=== PATIENT | male | born 1970 | race Caucasian/White ===

== ENCOUNTER 2018-07-03 08:00 | Outpatient (CLI) | payer BC ==
[~2018-07-03] VITALS: Ht 170.2 cm; Wt 99.1 kg
[2018-07-03] MEDS ORDERED: THIA100T67 PO (15:49)
[2018-07-03] MEDS ORDERED: QUET200T PO (15:49)
[2018-07-03] MEDS ORDERED: OXYC5CAP2 PO (15:49)
[2018-07-03] MEDS ORDERED: DIGO125T PO (15:49)
[2018-07-03] MEDS ORDERED: POTA20TA89 PO (15:49)
[2018-07-03] MEDS ORDERED: SPIR25TA5 PO (15:49)
[2018-07-03] MEDS ORDERED: ATOR10TA9 PO (15:49)
[2018-07-03] MEDS ORDERED: FURO20TA3 PO (15:49)
[2018-07-03] MEDS ORDERED: MAGN400T7 PO (15:49)
[2018-07-03] MEDS ORDERED: CYAN10005 PO (15:49)
[2018-07-03] MEDS ORDERED: ALBU90AE INH (15:49)
[2018-07-03] MEDS ORDERED: FOLI-17 PO (15:49)
[2018-07-03] MEDS ORDERED: AMOX-291 PO (15:50)
== END 2018-07-03 23:59 | disposition home or self-care (01) ==
LOC: STAR 08:00 → EDSTATUS 07-06 12:00
PROVIDERS: ATTEND Orthopaedic Surgery
DX: M75.122 Complete rotator cuff tear or rupture of left shoulder, not specified as traumatic (principal); M75.42 Impingement syndrome of left shoulder
CPT/HCPCS: 93005

== ENCOUNTER → 2019-03-01 | Outpatient (CLI) | payer BC ==
[~2019-03-01] MED LIST: ALBU90AE INH; AMOX-291 PO; ATOR10TA9 PO; ATOR40TA78 PO; CYAN-27 PO; DIGO125T PO; FOLI-17 PO; FURO20TA3 PO; LISI-170 PO; MAGN400T9 PO; METO-95 PO; OMEP-110 PO; OXYC5CAP2 PO; POTA20TA89 PO; QUET200T PO; SPIR25TA5 PO; THIA100T67 PO
[2019-03-01 15:40] LABS: ALANINE AMINOTRANSFERASE 70 U/L (12-78); ALBUMIN 3.3 g/dL (3.4-5.0); ANION GAP 9 mmol/L (5-15); CALCIUM 8.7 mg/dL (8.5-10.1); CHLORIDE 107 mmol/L (98-107); CREATININE 1.01 mg/dL (0.7-1.3)
[2019-03-01 15:42] LABS: ALKALINE PHOSPHATASE 145 U/L (45-117); BILIRUBIN,TOTAL 0.4 mg/dL (0.2-1.0); TOTAL PROTEIN 8.1 g/dL (6.4-8.2)
== END | disposition home or self-care (01) ==
LOC: STAR 14:55
PROVIDERS: ATTEND Orthopaedic Surgery
DX: Z01.818 Encounter for other preprocedural examination (principal); M75.122 Complete rotator cuff tear or rupture of left shoulder, not specified as traumatic; M75.22 Bicipital tendinitis, left shoulder; I45.81 Long QT syndrome; Z79.01 Long term (current) use of anticoagulants; Z79.899 Other long term (current) drug therapy
CPT/HCPCS: 36415; 80053; 93005

== ENCOUNTER 2019-03-08 08:22 | Day surgery (SDC) | payer BC ==
[~2019-03-08] VITALS: Ht 170.2 cm; Wt 98.0 kg
[~2019-03-08 08:22] MED LIST changes: +BUPIVACAINE/PF 0.5% ONE; +LIDOCAINE/PF 1%-EPI 1:200K, 30 ML ONE
[2019-03-08] MEDS ORDERED: LACTATED RINGERS 1,000 ML IV SCH (08:40)
[2019-03-08 08:41] VITALS: BP 115/78
[2019-03-08] MEDS ORDERED: SCOPOLAMINE PATCH, 1.5MG PATCH.TD72 TD ONE (09:00)
[2019-03-08] MEDS ORDERED: ACETAMINOPHEN 500 MG TABLET PO ONE (09:00)
[2019-03-08] MEDS ORDERED: GABAPENTIN 300 MG CAPSULE PO ONE (09:00)
[2019-03-08] MEDS ORDERED: MEPERIDINE/PF 25MG/ML,1ML IVPush PRN (10:00)
[2019-03-08] MEDS ORDERED: ONDANSETRON 2MG/ML, 2ML IV PRN (10:00)
[2019-03-08] MEDS ORDERED: ONDANSETRON ODT 8 MG PO PRN (10:00)
[2019-03-08] MEDS ORDERED: OXYcodone 5 MG/5 ML ORAL.SOL UDC PO PRN (10:00)
[2019-03-08] MEDS ORDERED: PROMETHAZINE 25 MG/ML, 1ML IV PRN (10:00)
[2019-03-08] MEDS ORDERED: HYDROmorphone 2 MG/ML, 1ML IVPush PRN (10:00)
[2019-03-08] MEDS ORDERED: PROMETHAZINE 25 MG SUPP PR PRN (10:00)
[2019-03-08] MEDS ORDERED: LORazepam 2 MG/ML, 1ML IVPush PRN (10:00)
[2019-03-08] MEDS ORDERED: LABETALOL 5MG/ML, 20ML IV PRN (10:00)
[2019-03-08] MEDS ORDERED: PROPOFOL 10 MG/ML, 20ML ONE (10:03)
[2019-03-08] MEDS ORDERED: DEXAMETHASONE 4 MG/ML, 1ML ONE (10:03)
[2019-03-08] MEDS ORDERED: EPHEDRINE 50 MG/ML, 1ML ONE (10:03)
[2019-03-08] MEDS ORDERED: CEFAZOLIN 1,000 MG ONE (10:03)
[2019-03-08] MEDS ORDERED: ONDANSETRON 2MG/ML, 2ML ONE (10:03)
[2019-03-08] MEDS ORDERED: ROCURONIUM 10 MG/ML,10ML ONE (10:03)
[2019-03-08] MEDS ORDERED: ALBUTEROL SULFATE 2.5 MG/3 ML NEB PRN (10:30)
[2019-03-08] MEDS ORDERED: FENTANYL PF 100 MCG/2ML ONE ×2 (11:41→12:39)
[2019-03-08] MEDS ORDERED: SUGAMMADEX 200 MG/2 ML IVPush ONE (12:03)
[2019-03-08] MEDS ORDERED: OXYcodone 5 MG/5 ML ORAL.SOL UDC ONE (12:39)
[2019-03-08] MEDS: FENTANYL PF 100 MCG/2ML IV PRN ×2 (12:42→12:47)
[2019-03-08] MEDS ORDERED: METOPROLOL 1 MG/ML, 5ML ONE (12:53)
[2019-03-08] MEDS ORDERED: hydrALAzine 20 MG/ML, 1ML ONE (12:53)
[2019-03-08] MEDS: hydrALAzine 20 MG/ML, 1ML IV PRN ×2 (12:54→13:19)
[2019-03-08] MEDS: METOPROLOL 1 MG/ML, 5ML IV PRN ×3 (12:55→13:24)
[2019-03-08] MEDS ORDERED: ATORVASTATIN 40 MG TABLET PO SCH (21:00)
[2019-03-08] MEDS ORDERED: QUETIAPINE 200 MG TABLET PO SCH (21:00)
[2019-03-09] MEDS ORDERED: LISINOPRIL 20 MG TABLET PO SCH (09:00)
[2019-03-09] MEDS ORDERED: FUROSEMIDE 20 MG TABLET PO SCH (09:00)
[2019-03-09] MEDS ORDERED: DIGOXIN 0.125 MG TABLET PO SCH (09:00)
[2019-03-09] MEDS ORDERED: METOPROLOL SUCCINATE 100 MG TAB.ER.24H PO SCH (09:00)
[2019-03-09] MEDS ORDERED: SPIRONOLACTONE 25 MG TABLET PO SCH (09:00)
[2019-03-09] MEDS ORDERED: OMEPRAZOLE 20 MG CAPSULE.DR PO SCH (09:00)
== END 2019-03-08 14:40 | disposition home or self-care (01) ==
LOC: OUT 08:22
PROVIDERS: ATTEND Orthopaedic Surgery
DX: S43.432A Superior glenoid labrum lesion of left shoulder, initial encounter (principal); S46.112A Strain of muscle, fascia and tendon of long head of biceps, left arm, initial encounter; M75.112 Incomplete rotator cuff tear or rupture of left shoulder, not specified as traumatic; M19.012 Primary osteoarthritis, left shoulder; M75.42 Impingement syndrome of left shoulder; M94.212 Chondromalacia, left shoulder; I10 Essential (primary) hypertension; Z88.6 Allergy status to analgesic agent; Z88.8 Allergy status to other drugs, medicaments and biological substances; X58.XXXA Exposure to other specified factors, initial encounter; Y93.89 Activity, other specified; Y92.89 Other specified places as the place of occurrence of the external cause; Y99.8 Other external cause status
CPT/HCPCS: 29823; 29824; 29826; 29827; 29828; 64415; C1713; J0330; J0360; J0690; J1100; J2250; J2405; J2704; J2710; J3010; J3490; J7120